=== PATIENT | male | born 1990 | race Caucasian/White ===

== ENCOUNTER 2016-11-17 21:46 | Emergency (ER) | payer BC, OTHER ==
[2016-11-17 21:54] VITALS: BP 157/100; PULSE 68; TEMP 98; BMI 33.2
--- NOTE | 2016-11-17 22:03 | PDOC ---
History of Present Illness - General Chief Complaint: Pain Stated Complaint: HIT TO FACE WITH SOFTBALL Time Seen by Provider: 11/17/16 21:56 History Source: Patient Exam Limitations: No Limitations - History of Present Illness Initial Comments: 11/17/16 22:40 This is a 26-year-old male who comes in complaining of being hit in the jaw with a baseball earlier in the day while playing softball. Patient did not pass out he denies any neck pain, dizziness, headache or any other symptoms other than pain over the area where the softball hit him in the left mandible area. PAST MEDICAL HISTORY: no significant history PAST SURGICAL HISTORY: no significant history FAMILY HISTORY: no pertinant history SOCIAL HISTORY: Pt lives with family and is employed. MEDICATIONS: reviewed ALLERGIES: As per nursing notes Review of Systems General: No fevers or chills, no weakness, no weight loss HEENT: No change in vision. No sore throat,. No ear pain, pain in the area of left mandible CardioVascular: No chest pain or shortness of breath Respiratory:No cough, or wheezing. Gastrointestinal: no nausea, vomitting, diarrhea or constipation, No rectal bleeding Genitourinary: No dysuria, hematuria, or frequency Musculoskeletal: No joint or muscle pain or swelling Neurologic: No headache, vertigo, dizziness or loss of consciousness Psychiatric: nor depression Skin: No rashes or easy bruising Endocrine: no increased thirst or abnormal weight change Allergic: no skin or latex allergy All other systems reviewed and normal GENERAL: The patient is awake, alert, and fully oriented, in no acute distress. HEAD: There is a contusion over the left mandible approximately mid mandible with some mild tenderness on palpation of the jaw. Cervical spine there is no tenderness on palpation EYES: Pupils equal, round and reactive to light, extraocular movements intact, sclera anicteric, conjunctiva clear. EXTREMITIES: Normal range of motion, no edema. NEUROLOGICAL: Normal speech, normal gait. PSYCH: Normal mood, normal affect. SKIN: Warm, Dry, normal turgor, no rashes or lesions noted. X-ray left mandible area no fractures or dislocation Assessment and plan: This is a 26-year-old male with a contusion over the left side of his mandible secondary to being hit by a softball. Patient had x-ray that was negative for any fractures or dislocations. Patient discharged home will follow-up with his doctor as needed. Past History - Past Medical History Allergies/Adverse Reactions: Allergies Allergy/AdvReac Type Severity Reaction Status Date / Time No Known Allergies Allergy Verified 04/22/13 02:03 Home Medications: Ambulatory Orders No Home Medications 0 dose .ROUTE UTDICT 01/24/12 - Immunization History Immunization Up to Date: No - Psycho/Social/Smoking Cessation Hx Anxiety: No Suicidal Ideation: No Smoking Status: No Smoking History: Unknown if ever smoked Have you smoked in the past 12 months: No Number of Cigarettes Smoked Daily: 0 Information on smoking cessation initiated: No Hx Alcohol Use: No Drug/Substance Use Hx: No Substance Use Type: None *Physical Exam - Vital Signs Last Vital Signs Temp Pulse Resp BP Pulse Ox 98 F 68 14 157/100 99 11/17/16 21:50 11/17/16 21:50 11/17/16 21:50 11/17/16 21:50 11/17/16 21:50 *DC/Admit/Observation/Transfer Diagnosis at time of Disposition: Contusion of mandibular joint area - Discharge Dispostion Disposition: HOME Condition at time of disposition: Good Admit: No - Patient Instructions Additional Instructions: Tylenol or Motrin as needed for pain. Return to the emergency department immediately with ANY new, persistent or worsening symptoms. Continue any medications as previously prescribed by your physician. You should follow up with your primary doctor as soon as possible regarding today's emergency department visit. . Please make sure your doctor reviews the results of your emergency evaluation. Thank you for coming to the Emergency Department today for your care. It was a pleasure to see you today. Please note that your evaluation is INCOMPLETE until you follow-up with your doctor.
== END 2016-11-17 23:10 | disposition home or self-care (01) ==
LOC: FER 21:46
DX: S00.83XA Contusion of other part of head, initial encounter (principal); W20.8XXA Other cause of strike by thrown, projected or falling object, initial encounter; Y93.64 Activity, baseball; Y92.320 Baseball field as the place of occurrence of the external cause
CPT/HCPCS: 70100-TC; 99282-25

== ENCOUNTER 2018-08-11 20:55 | Emergency (ER) | payer BC, OTHER ==
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
[2018-08-11 21:02] VITALS: BP 149/96; PULSE 96; TEMP 98.7; BMI 34.7
== END 2018-08-11 21:14 | disposition home or self-care (01) ==
LOC: FER 20:55
DX: M79.89 Other specified soft tissue disorders (principal)
CPT/HCPCS: 99283-25

== ENCOUNTER 2019-07-19 06:32 | Emergency (ER) | payer BC, OTHER ==
[2019-07-19 06:51] VITALS: BP 142/98; PULSE 68; TEMP 98.6; BMI 32.3
--- NOTE | 2019-07-19 07:06 | PDOC ---
History of Present Illness - General Chief Complaint: Cold Symptoms Stated Complaint: COUGH/BURNING TO THE CHEST Time Seen by Provider: 07/19/19 06:59 History Source: Patient Exam Limitations: No Limitations - History of Present Illness Initial Comments: 07/19/19 07:02 29 y/o male with cough, congestion, burning in chest when coughing. Denies fever or chills. No N/V/d/C. Went to urgent care on Tuesday and was negative for flu. Symptoms started on Tuesday. Son home sick. OTC medications not working. Denies traveling. Is this a multiple visit Asthma Patient?: No Past History - Travel Traveled outside of the country in the last 30 days: No - Past Medical History Allergies/Adverse Reactions: Allergies Allergy/AdvReac Type Severity Reaction Status Date / Time No Known Allergies Allergy Verified 08/11/18 20:58 Home Medications: Ambulatory Orders No Home Medications 0 dose .ROUTE UTDICT 01/24/12 Azithromycin [Zithromax -] 250 mg PO UTDICT #6 tab 07/19/19 COPD: No HTN: Yes (not on meds) - Immunization History Immunization Up to Date: No - Psycho Social/Smoking Cessation Hx Smoking Status: No Smoking History: Unknown if ever smoked Have you smoked in the past 12 months: No Number of Cigarettes Smoked Daily: 0 Information on smoking cessation initiated: No Hx Alcohol Use: No Drug/Substance Use Hx: No Substance Use Type: None Review of Systems - Review of Systems Able to Perform ROS?: Yes Is the patient limited Telugu proficient: No Constitutional: No: Chills, Fever Respiratory: Yes: Cough. No: Shortness of Breath, Productive cough Cardiac (ROS): No: Chest Pain ABD/GI: No: Nausea, Vomiting : No: Burning All Other Systems: Reviewed and Negative *Physical Exam - Vital Signs Last Vital Signs Temp Pulse Resp BP Pulse Ox 98.6 F 68 14 142/98 100 07/19/19 06:35 07/19/19 06:35 07/19/19 06:35 07/19/19 06:35 07/19/19 06:35 - Physical Exam General Appearance: Yes: Nourished, Appropriately Dressed. No: Apparent Distress HEENT: positive: EOMI, TIP, Normal ENT Inspection, Normal Voice, Symmetrical, Pharynx Normal Neck: positive: Trachea midline, Normal Thyroid, Supple. negative: Tender, Rigid Respiratory/Chest: positive: Lungs Clear, Normal Breath Sounds. negative: Chest Tender, Respiratory Distress Cardiovascular: positive: Regular Rhythm, Regular Rate, S1, S2. negative: Edema , JVD, Murmur Vascular Pulses: Femoral (R): 4+, Femoral (L): 4+, Carotid (R): 4+, Carotid (L) : 4+, Dorsalis-Pedis (R): 4+, Doralis-Pedis (L): 4+ Gastrointestinal/Abdominal: positive: Normal Bowel Sounds, Flat, Soft. negative : Tender, Organomegaly, Pulsatile Mass Lymphatic: negative: Adenopathy, Tenderness, Other Musculoskeletal: positive: Normal Inspection. negative: CVA Tenderness Extremity: positive: Normal Capillary Refill, Normal Inspection, Normal Range of Motion. negative: Tender Integumentary: positive: Normal Color, Dry, Warm Neurologic: positive: family preservation caseworker II-XII NML intact, Fully Oriented, Alert, Normal Mood/ Affect, Normal Response, Motor Strength 5/5 ED Treatment Course - ADDITIONAL ORDERS Additional order review: 07/19/19 07:05 Pt with cough congestion Will treat with Z-pack Pt is in agreement with plan Discharge - Discharge Information Problems reviewed: Yes Clinical Impression/Diagnosis: Upper respiratory infection Condition: Good Disposition: HOME - Admission No - Follow up/Referral - Patient Discharge Instructions Patient Printed Discharge Instructions: Acute Bronchitis Additional Instructions: Fluids, rest, Motrin Z-pack as directed If worsen return to ER - Post Discharge Activity
== END 2019-07-19 07:13 | disposition home or self-care (01) ==
LOC: FER 06:32
DX: J06.9 Acute upper respiratory infection, unspecified (principal)
CPT/HCPCS: 99282-25

== ENCOUNTER 2021-05-25 17:40 | Emergency (ER) | payer SELFPAY ==
[2021-05-25] MEDS ORDERED: DIPHTH,PERTUSS(ACELL),TET 0.5 ML DISP.SYRIN IM ONE ×2 (17:51→17:58)
[2021-05-25] MEDS ORDERED: BACITRACIN 15 GM TUBE TOPICAL OINTMENT TP ONE (17:52)
[2021-05-25 18:00] VITALS: BP 149/99; PULSE 70; TEMP 98.4; BMI 35.9
== END 2021-05-25 18:20 | disposition home or self-care (01) ==
LOC: FER 17:40 → SUPCPDRO 17:40 → FER 18:20
PROC: 3E0234Z Introduction of Serum, Toxoid and Vaccine into Muscle, Percutaneous Approach (ICD-10-PCS; principal; 2021-05-25)
DX: S61.412A Laceration without foreign body of left hand, initial encounter (principal); W26.8XXA Contact with other sharp object(s), not elsewhere classified, initial encounter
CPT/HCPCS: 90715; 99284-25

== ENCOUNTER 2021-11-08 13:32 | Emergency (ER) | payer BC ==
[2021-11-08 13:46] VITALS: PULSE 18; TEMP 98.9; BMI 34.8
[2021-11-08] MEDS ORDERED: NAPROXEN 375 MG TABLET ONE (14:41)
[2021-11-08] MEDS ORDERED: NAPROXEN 375 MG TABLET PO ONE (14:41)
[2021-11-08 14:46] VITALS: BP 135/85
== END 2021-11-08 14:48 | disposition home or self-care (01) ==
LOC: FER 13:32
DX: S50.01XA Contusion of right elbow, initial encounter (principal)
CPT/HCPCS: 73070-TC-RT-FY; 99284-25

== ENCOUNTER 2022-02-22 21:04 | Emergency (ER) | payer BC ==
[2022-02-22] MEDS ORDERED: KETOROLAC TROMETHAMINE 60 MG/2 ML VIAL IM ONE (21:19)
[2022-02-22] MEDS ORDERED: KETOROLAC TROMETHAMINE 60 MG/2 ML VIAL ONE (21:21)
[2022-02-22 21:26] VITALS: BP 140/90; PULSE 80; RESP 16; TEMP 97.8; BMI 34.8
== END 2022-02-22 21:47 | disposition home or self-care (01) ==
LOC: FER 21:04
PROC: 3E0233Z Introduction of Anti-inflammatory into Muscle, Percutaneous Approach (ICD-10-PCS; principal; 2022-02-22)
DX: R07.9 Chest pain, unspecified (principal)
CPT/HCPCS: 99284-25

== ENCOUNTER 2022-10-20 07:25 | Emergency (ER) | payer BC ==
[2022-10-20 07:37] VITALS: BP 147/103; PULSE 73; RESP 16; TEMP 99.5; BMI 35.5
[2022-10-20 08:56] LABS: HEMATOCRIT 47.8 % (35.4-49); HEMOGLOBIN 16.4 G/dL (11.7-16.9); MCH 29.1 pg (25.7-33.7); MCHC 34.2 g/dl (32.0-35.9); PLATELET COUNT 225.7 10^3/uL (134-434); RBC 5.62 10^6/uL (4.00-5.60); RDW 14.4 % (11.9-15.9); WHITE BLOOD COUNT 4.8 10^3/uL (4.0-10.8)
[2022-10-20 09:03] LABS: ALBUMIN 4.1 g/dl (3.4-5.0); BILIRUBIN,TOTAL 0.8 mg/dl (0.2-1); CALCIUM 9.2 mg/dl (8.5-10); CREATININE 1.1 mg/dl (0.55-1.3); TOT PROT 6.9 g/dl (6.4-8.2)
[2022-10-20 09:18] LABS: PLATELET ESTIMATE ADEQUATE
== END 2022-10-20 09:45 | disposition home or self-care (01) ==
LOC: FER 07:25
DX: R07.89 Other chest pain (principal)
CPT/HCPCS: 36415; 71045-TC-FY; 80053; 81003; 84484; 85027; 93005; 99285-25